=== PATIENT | female | born 1980 | race Caucasian/White ===

== ENCOUNTER 2021-12-21 15:04 | Inpatient (IN) | payer OTHER ==
[2021-12-21 17:40] LABS: BASO % 0.9 % (0-2.0); EOS % 3.5 % (0-4.5); HEMATOCRIT 23.3 % (32.4-45.2); LYMPH % 28.5 % (8-40); MCH 20.3 pg (25.7-33.7); MCHC 29.9 g/dl (32.0-36.0); MEAN CELL VOLUME 67.7 fl (80-96); MEAN PLT VOLUME 7.2 fl (7.5-11.1); MONO % 7.2 % (3.8-10.2); NEUT % 59.9 % (42.8-82.8); PLATELET COUNT 342 10^3/uL (134-434); RBC 3.45 M/mm3 (3.60-5.2); RDW 18.7 % (11.6-15.6); WHITE BLOOD COUNT 4.6 K/mm3 (4.0-10.0)
[2021-12-21] MEDS ORDERED: SODIUM CHLORIDE 0.9% 500 ML INFUS.BAG IV ONE (17:45)
[2021-12-21] MEDS ORDERED: ACETAMINOPHEN 1000 MG/100 ML BAG IVPB ONE (17:45)
[2021-12-21 17:59] LABS: CALCIUM 8.8 mg/dL (8.5-10.1)
[2021-12-21] MEDS ORDERED: ACETAMINOPHEN INJECTION 100 ML IVPB ONE (17:59)
[2021-12-21 18:00] LABS: ALBUMIN 2.7 g/dl (3.4-5.0); BLOOD UREA NITROGEN 15.8 mg/dL (7-18); MAGNESIUM 2.2 mg/dL (1.8-2.4)
[2021-12-21 18:03] LABS: CREATININE 0.7 mg/dL (0.55-1.3)
[2021-12-21 18:05] LABS: BILIRUBIN,TOTAL 0.1 mg/dL (0.2-1); TOT PROT 7.5 g/dl (6.4-8.2)
[2021-12-21 18:41] LABS: ANISOCYTOSIS 3+; MACROCYTOSIS 0
[2021-12-21 18:44] LABS: INR 1.07 (0.83-1.09); PROTHROMBIN TIME (PATIENT) 12.3 SEC (9.7-13.0)
[2021-12-21 18:47] LABS: ACTIVATED PTT 33.2 SECONDS (25.2-36.5)
[2021-12-21] MEDS ORDERED: VANCOMYCIN 1,000 MG in DEXTROSE 5%-WATER - 250 ML IVPB ONE (19:08)
[2021-12-21] MEDS ORDERED: PIPERACILLIN/TAZOB 4.5 GM 4.5 GM in DEXTROSE 5%-WATER 100 ML IVPB ONE (19:08)
[2021-12-21] MEDS ORDERED: PIPERACILLIN/TAZOB 4.5 GM 4.5 GM/100 ML BAG IVPB ONE (19:17)
[2021-12-21] MEDS ORDERED: VANCOMYCIN/WATER FOR INJ (PEG) 1,000 MG/200 ML BAG IVPB ONE (19:17)
[2021-12-21 19:37] LABS: ERYTHROCYTE SEDIMENTATION RATE 72 mm/hr (0-20)
[2021-12-21] MEDS ORDERED: KETOROLAC TROMETHAMINE 15 MG/ML VIAL IVPUSH ONE (21:28)
[2021-12-21] MEDS ORDERED: KETOROLAC TROMETHAMINE 15 MG/ML VIAL ONE (21:32)
[2021-12-22] MEDS ORDERED: LORazepam 1 MG TABLET PO PRN (06:09)
[2021-12-22] MEDS ORDERED: PIPERACILLIN/TAZOB 3.375 GM 3.375 GM/50 ML BAG IVPB ONE ×2 (06:57→18:20)
[2021-12-22] MEDS: LORazepam 2 MG TABLET PO SCH ×4 (06:59→23:13)
[2021-12-22] MEDS: PIPERACILLIN/TAZOB 3.375 GM 3.375 GM in DEXTROSE 5%-WATER - 50 ML IVPB SCH ×2 (06:59→18:19)
[2021-12-22 08:51] LABS: BASO % 1.1 % (0-2.0); EOS % 4.5 % (0-4.5); HEMOGLOBIN 8.3 GM/dL (10.7-15.3); LYMPH % 30.2 % (8-40); MCHC 31.7 g/dl (32.0-36.0); MEAN CELL VOLUME 69.5 fl (80-96); MEAN PLT VOLUME 6.9 fl (7.5-11.1); MONO % 7.8 % (3.8-10.2); NEUT % 56.4 % (42.8-82.8); PLATELET COUNT 263 10^3/uL (134-434); RBC 3.75 M/mm3 (3.60-5.2); RDW 20.6 % (11.6-15.6); WHITE BLOOD COUNT 3.4 K/mm3 (4.0-10.0)
[2021-12-22] MEDS ORDERED: THIAMINE HCL 100 MG TABLET (FP) ONE (08:54)
[2021-12-22] MEDS ORDERED: FOLIC ACID 1 MG TABLET (FP) ONE (08:55)
[2021-12-22] MEDS ORDERED: ENOXAPARIN NA (PORCINE) 40 MG/0.4 ML DISP.SYRIN SQ ONE (08:55)
[2021-12-22] MEDS: ENOXAPARIN NA (PORCINE) 40 MG/0.4 ML DISP.SYRIN SQ SCH (09:01)
[2021-12-22] MEDS: THIAMINE HCL 100 MG TABLET (FP) PO SCH (09:01)
[2021-12-22] MEDS: FOLIC ACID 1 MG TABLET (FP) PO SCH (09:01)
[2021-12-22 09:18] LABS: CALCIUM 8.3 mg/dL (8.5-10.1)
[2021-12-22 09:19] LABS: BLOOD UREA NITROGEN 17.6 mg/dL (7-18)
[2021-12-22 09:22] LABS: CREATININE 0.7 mg/dL (0.55-1.3); PHOSPHOROUS 4.5 mg/dL (2.5-4.9)
[2021-12-22 09:23] LABS: BILIRUBIN,TOTAL 0.2 mg/dL (0.2-1); TOT PROT 5.9 g/dl (6.4-8.2)
[2021-12-22 09:24] LABS: ALBUMIN 2.1 g/dl (3.4-5.0)
[2021-12-22] MEDS ORDERED: PIPERACILLIN/TAZOB 3.375 GM 3.375 GM in DEXTROSE 5%-WATER - 50 ML IVPB SCH (10:00)
[2021-12-22] MEDS ORDERED: LORazepam 1 MG TABLET ONE ×3 (11:04→21:12)
[2021-12-22] MEDS ORDERED: PERMETHRIN 5% TOPICAL CREAM 60 GM TUBE TP ONE (12:05)
[2021-12-22] MEDS ORDERED: methaDONE HCL 40 MG DISPERSABLE TABLET PO ONE (15:51)
[2021-12-22] MEDS ORDERED: methaDONE HCL 40 MG DISPERSABLE TABLET ONE ×2 (16:21→16:54)
[2021-12-22] MEDS ORDERED: methaDONE HCL 10 MG TABLET PO ONE (16:56)
[2021-12-22] MEDS ORDERED: KETOROLAC TROMETHAMINE 15 MG/ML VIAL IVPUSH PRN (18:32)
[2021-12-22] MEDS: diphenhydrAMINE HCL 25 MG CAPSULE (FP) PO PRN (19:22)
[2021-12-22] MEDS: KETOROLAC TROMETHAMINE 15 MG/ML VIAL IM PRN (19:23)
[2021-12-22] MEDS ORDERED: VANCOMYCIN 1 GM in D5W (PRE-DOCKED) 1,000 MG/250 ML IVPB SCH (21:00)
[2021-12-22] MEDS ORDERED: VANCOMYCIN/WATER FOR INJ (PEG) 1,000 MG/200 ML BAG IVPB ONE (21:50)
[2021-12-22] MEDS: VANCOMYCIN/WATER FOR INJ (PEG) 1,000 MG/200 ML BAG IVPB SCH (22:27)
[2021-12-22] MEDS ORDERED: LORazepam 1 MG TABLET PO SCH (23:00)
[2021-12-23] MEDS: PIPERACILLIN/TAZOB 3.375 GM 3.375 GM in DEXTROSE 5%-WATER - 50 ML IVPB SCH ×3 (01:29→17:39)
[2021-12-23] MEDS: KETOROLAC TROMETHAMINE 15 MG/ML VIAL IM PRN ×3 (01:30→17:44)
[2021-12-23] MEDS: diphenhydrAMINE HCL 25 MG CAPSULE (FP) PO PRN ×3 (01:30→22:40)
[2021-12-23] MEDS: LORazepam 1 MG TABLET PO SCH ×4 (05:10→22:40)
[2021-12-23] MEDS ORDERED: methaDONE HCL 10 MG TABLET PO SCH (06:00)
[2021-12-23] MEDS ORDERED: HYDROCORTISONE 0.5% TOPICAL CREAM 30 GM TUBE TP PRN (09:24)
[2021-12-23 10:29] LABS: EOS % 4.4 % (0-4.5); HEMATOCRIT 27.6 % (32.4-45.2); HEMOGLOBIN 8.5 GM/dL (10.7-15.3); LYMPH % 36.6 % (8-40); MCH 21.5 pg (25.7-33.7); MCHC 30.6 g/dl (32.0-36.0); MEAN CELL VOLUME 70.1 fl (80-96); MEAN PLT VOLUME 7.6 fl (7.5-11.1); MONO % 6.9 % (3.8-10.2); NEUT % 51.1 % (42.8-82.8); PLATELET COUNT 365 10^3/uL (134-434); RBC 3.93 M/mm3 (3.60-5.2); RDW 20.2 % (11.6-15.6); WHITE BLOOD COUNT 4.3 K/mm3 (4.0-10.0)
[2021-12-23 11:07] LABS: ALBUMIN 2.4 g/dl (3.4-5.0); BLOOD UREA NITROGEN 17.4 mg/dL (7-18); CALCIUM 8.6 mg/dL (8.5-10.1); MAGNESIUM 1.9 mg/dL (1.8-2.4)
[2021-12-23 11:10] LABS: CREATININE 0.8 mg/dL (0.55-1.3)
[2021-12-23 11:11] LABS: TOT PROT 6.7 g/dl (6.4-8.2)
[2021-12-23] MEDS: THIAMINE HCL 100 MG TABLET (FP) PO SCH (11:12)
[2021-12-23] MEDS: FOLIC ACID 1 MG TABLET (FP) PO SCH (11:12)
[2021-12-23] MEDS: ENOXAPARIN NA (PORCINE) 40 MG/0.4 ML DISP.SYRIN SQ SCH (11:12)
[2021-12-23 11:13] LABS: BILIRUBIN,TOTAL 0.2 mg/dL (0.2-1)
[2021-12-23] MEDS ORDERED: IRON SUCROSE INJECTION 200 MG in SODIUM CHLORIDE 90 ML IVPB ONE (12:30)
[2021-12-23] MEDS: VANCOMYCIN/WATER FOR INJ (PEG) 1,000 MG/200 ML BAG IVPB SCH (20:15)
[2021-12-24] MEDS ORDERED: LORazepam 0.5 MG TABLET PO PRN
[2021-12-24] MEDS: PIPERACILLIN/TAZOB 3.375 GM 3.375 GM in DEXTROSE 5%-WATER - 50 ML IVPB SCH ×4 (01:28→17:41)
[2021-12-24] MEDS: LORazepam 0.5 MG TABLET PO SCH ×4 (05:08→22:20)
[2021-12-24] MEDS: FOLIC ACID 1 MG TABLET (FP) PO SCH (10:36)
[2021-12-24] MEDS: ENOXAPARIN NA (PORCINE) 40 MG/0.4 ML DISP.SYRIN SQ SCH (10:36)
[2021-12-24] MEDS: PRENATAL VITAMINS W/ FOLIC ACID TABLET (FP) PO SCH (10:36)
[2021-12-24] MEDS: THIAMINE HCL 100 MG TABLET (FP) PO SCH (10:36)
[2021-12-24] MEDS: diphenhydrAMINE HCL 25 MG CAPSULE (FP) PO PRN ×3 (10:36→21:13)
[2021-12-24] MEDS: KETOROLAC TROMETHAMINE 15 MG/ML VIAL IM PRN (10:38)
[2021-12-24 11:06] LABS: BASO % 1.2 % (0-2.0); HEMOGLOBIN 8.8 GM/dL (10.7-15.3); LYMPH % 33.2 % (8-40); MCH 22.1 pg (25.7-33.7); MCHC 31.5 g/dl (32.0-36.0); MEAN CELL VOLUME 70.2 fl (80-96); MONO % 6.3 % (3.8-10.2); NEUT % 55.3 % (42.8-82.8); PLATELET COUNT 380 10^3/uL (134-434); RBC 3.99 M/mm3 (3.60-5.2); RDW 21.2 % (11.6-15.6); WHITE BLOOD COUNT 5.2 K/mm3 (4.0-10.0)
[2021-12-24] MEDS ORDERED: clonazePAM 2 MG TABLET PO ONE (11:30)
[2021-12-24 11:31] LABS: CALCIUM 8.9 mg/dL (8.5-10.1)
[2021-12-24 11:32] LABS: ALBUMIN 2.7 g/dl (3.4-5.0); BLOOD UREA NITROGEN 21.5 mg/dL (7-18)
[2021-12-24] MEDS ORDERED: KETOROLAC TROMETHAMINE 15 MG/ML VIAL IVPB PRN (11:32)
[2021-12-24 11:35] LABS: CREATININE 0.7 mg/dL (0.55-1.3)
[2021-12-24 11:36] LABS: BILIRUBIN,TOTAL 0.5 mg/dL (0.2-1)
[2021-12-24 11:37] LABS: TOT PROT 7.4 g/dl (6.4-8.2)
[2021-12-24] MEDS: GABAPENTIN 300 MG CAPSULE PO SCH ×2 (12:33→21:14)
[2021-12-24] MEDS: OLANZapine 5 MG TABLET PO SCH (21:13)
[2021-12-24] MEDS: CLINDAMYCIN HCL 150 MG CAPSULE (FP) PO SCH (21:13)
[2021-12-24] MEDS: clonazePAM 2 MG TABLET PO PRN (21:13)
[2021-12-25] MEDS ORDERED: LORazepam 0.5 MG TABLET PO ONE (05:00)
[2021-12-25] MEDS: CLINDAMYCIN HCL 150 MG CAPSULE (FP) PO SCH ×3 (05:45→21:41)
[2021-12-25] MEDS: levoFLOXacin 750 MG TABLET PO SCH (05:45)
[2021-12-25] MEDS: PRENATAL VITAMINS W/ FOLIC ACID TABLET (FP) PO SCH (10:22)
[2021-12-25] MEDS: diphenhydrAMINE HCL 25 MG CAPSULE (FP) PO PRN ×2 (10:22→20:13)
[2021-12-25] MEDS: clonazePAM 2 MG TABLET PO PRN ×2 (10:22→20:13)
[2021-12-25] MEDS: GABAPENTIN 300 MG CAPSULE PO SCH ×2 (10:22→21:41)
[2021-12-25] MEDS: THIAMINE HCL 100 MG TABLET (FP) PO SCH (10:22)
[2021-12-25] MEDS: ENOXAPARIN NA (PORCINE) 40 MG/0.4 ML DISP.SYRIN SQ SCH (10:23)
[2021-12-25] MEDS: FOLIC ACID 1 MG TABLET (FP) PO SCH (10:23)
[2021-12-25 13:51] VITALS: RESP 18
[2021-12-25] MEDS: OLANZapine 5 MG TABLET PO SCH (21:41)
[2021-12-25] MEDS: IBUPROFEN 600 MG TABLET (FP) PO PRN (22:36)
[2021-12-26] MEDS: CLINDAMYCIN HCL 150 MG CAPSULE (FP) PO SCH ×2 (06:01→13:00)
[2021-12-26] MEDS: levoFLOXacin 750 MG TABLET PO SCH (06:01)
[2021-12-26 09:06] VITALS: BP 120/77; PULSE 82; TEMP 98.2
[2021-12-26] MEDS: FOLIC ACID 1 MG TABLET (FP) PO SCH (09:33)
[2021-12-26] MEDS: GABAPENTIN 300 MG CAPSULE PO SCH (09:33)
[2021-12-26] MEDS: PRENATAL VITAMINS W/ FOLIC ACID TABLET (FP) PO SCH (09:33)
[2021-12-26] MEDS: THIAMINE HCL 100 MG TABLET (FP) PO SCH (09:33)
[2021-12-26] MEDS: clonazePAM 2 MG TABLET PO PRN (09:38)
[2021-12-26] MEDS: IBUPROFEN 600 MG TABLET (FP) PO PRN (09:38)
== END 2021-12-26 14:08 | disposition home or self-care (01) | DRG 383 ==
LOC: JER 15:04 → JERBED 19:40 → J6S 12-22 22:42
PROVIDERS: ADMIT Internal Medicine; ATTEND Nurse Practitioner Family
PROC: 30233N1 Transfusion of Nonautologous Red Blood Cells into Peripheral Vein, Percutaneous Approach (ICD-10-PCS; principal; 2021-12-22)
DX: L03.116 Cellulitis of left lower limb (principal); L97.902 Non-pressure chronic ulcer of unspecified part of unspecified lower leg with fat layer exposed; D64.9 Anemia, unspecified; E46 Unspecified protein-calorie malnutrition; Z68.20 Body mass index [BMI] 20.0-20.9, adult; F11.23 Opioid dependence with withdrawal; F19.20 Other psychoactive substance dependence, uncomplicated
CPT/HCPCS: 36415; 36430; 70450-TC; 73701-TC-RT; 80053; 82728; 83540; 83550; 83735; 84100; 84466; 84703; 85025; 85045; 85610; 85651; 85730; 86140; 86850; 86900; 86901; 86922; 87081; 93005; 93010; 93970-TC; 97116-GP; 97162-GP; 99285-25; C9803-CS; J1756; P9058; Q9967; U0003; U0005